=== PATIENT | female | born 1965 | race Caucasian/White ===

== ENCOUNTER 2023-01-27 07:13 | Outpatient (CLI) | payer BC, SELFPAY ==
[2023-01-27 08:00] LABS: Free T4 Free Thyroxine 1.34 ng/dL (0.82-1.77); Thyroid Stimulating Hormone 1.12 uIU/mL (0.27-4.20)
[2023-01-27 08:42] LABS: 25 Hydroxy Vitamin D 55 ng/mL (30-100)
== END 2023-01-27 07:14 | disposition home or self-care (01) ==
PROVIDERS: PCP Internal Medicine; Visit Provider Internal Medicine
DX: E03.9 Hypothyroidism, unspecified (principal); E04.2 Nontoxic multinodular goiter; E55.9 Vitamin D deficiency, unspecified
CPT/HCPCS: 36415; 82306; 84439; 84443

== ENCOUNTER 2023-01-28 15:36 | Outpatient (CLI) | payer BC, SELFPAY ==
--- NOTE | 2023-01-28 16:45 | US_ITS ---
WS: [id number] ULTRASOUND THYROID TECHNIQUE: Ultrasound of the thyroid. CLINICAL INFORMATION: Thyroid Dysfunction COMPARISON: None. FINDINGS: Thyroid: Small heterogeneous atrophic thyroid gland. Right thyroid lobe: 2.9 cm x 0.9 cm x 1.3 cm Solid RIGHT mid thyroid nodule measuring 1.1 x 0.7 x 0.7 cm Left thyroid lobe: 2.3 cm x 0.8 cm x 1.0 cm. Solid LEFT mid thyroid nodule measuring 0.5 x 0.6 x 0.8 cm Isthmus: 0.1 mm. Cervical lymphadenopathy: None. IMPRESSION: 1. Small heterogeneous atrophic thyroid gland. 2. Solid RIGHT mid thyroid nodule measuring 1.1 x 0.7 x 0.7 cm 3. Solid LEFT mid thyroid nodule measuring 0.5 x 0.6 x 0.8 cm
== END 2023-01-28 15:37 | disposition home or self-care (01) ==
PROVIDERS: PCP Internal Medicine; Visit Provider Internal Medicine
DX: E03.9 Hypothyroidism, unspecified (principal); E07.9 Disorder of thyroid, unspecified; E03.4 Atrophy of thyroid (acquired); E04.2 Nontoxic multinodular goiter
CPT/HCPCS: 76536

== ENCOUNTER 2023-03-03 07:37 | Outpatient (CLI) | payer BC, SELFPAY ==
--- NOTE | 2023-03-03 08:06 | MM_ITS ---
WS: [id number] BILATERAL SCREENING DIGITAL TOMOSYNTHESIS MAMMOGRAM WITH CAD HISTORY: SCREENING COMPARISON: 10/02/2021, 09/29/2020 Bilateral CC and MLO views with tomosynthesis and synthetic mammography submitted. Computer aided det ection analyzed. Breast composition: There are scattered areas of fibroglandular density. No suspicious masses, microc alcifications or architectural distortion. IMPRESSION: MM/[place] [id number] BI-RADS: 1-Negative FOLLOW UP: 1 Year Follow-up
== END 2023-03-03 07:38 | disposition home or self-care (01) ==
LOC: RAD 07:37
PROVIDERS: PCP Internal Medicine; Visit Provider Nurse Practitioner Family
DX: Z12.31 Encounter for screening mammogram for malignant neoplasm of breast (principal)
CPT/HCPCS: 77063; 77067

== ENCOUNTER 2023-07-20 06:57 | Outpatient (CLI) | payer BC, SELFPAY ==
[2023-07-20 07:51] LABS: Free T4 Free Thyroxine 1.67 ng/dL (0.82-1.77); Thyroid Stimulating Hormone 1.24 uIU/mL (0.27-4.20)
[2023-07-20 09:22] LABS: 25 Hydroxy Vitamin D 31 ng/mL (30-100)
== END 2023-07-20 06:58 | disposition home or self-care (01) ==
LOC: LAB 07:02
PROVIDERS: PCP Internal Medicine; Visit Provider Internal Medicine
DX: E07.9 Disorder of thyroid, unspecified (principal); E03.9 Hypothyroidism, unspecified
CPT/HCPCS: 36415; 82306; 84439; 84443

== ENCOUNTER 2023-08-25 17:19 | Outpatient (CLI) | payer BC, SELFPAY ==
--- NOTE | 2023-08-25 17:28 | XRR_ITS ---
PROCEDURE INFORMATION: Exam: XR Chest Exam date and time: 08/25/2023 5:31 PM Age: 57 years old Clinical indication: Shortness of breath; Patient HX: SOB x 3 months; Additional info: Chest pain TECHNIQUE: Imaging protocol: Radiologic exam of the chest. Views: 2 views. COMPARISON: No relevant prior studies available. FINDINGS: Lungs: Unremarkable. No consolidation. Pleural spaces: Unremarkable. No pleural effusion. No pneumothorax. Heart/Mediastinum: Unremarkable. No cardiomegaly. Bones/joints: Unremarkable. XR/XR chest 2V* [id number] IMPRESSION: No acute findings.
== END 2023-08-25 17:20 | disposition home or self-care (01) ==
LOC: RAD 17:22
PROVIDERS: PCP Internal Medicine; Visit Provider Nurse Practitioner Family
DX: R06.02 Shortness of breath (principal); R07.9 Chest pain, unspecified
CPT/HCPCS: 71046

== ENCOUNTER 2023-09-09 09:55 | Outpatient (CLI) | payer BC, SELFPAY ==
--- NOTE | 2023-09-09 | ECG_ITS ---
[facility] Test Date: 2023-09-09 Pat Name: Ilda Jurado Department: Room: Gender: Female Urology Surgeon: : 1965 Requested By: Radha Cotton Order Number: [id number] Smith MD: Chilo Rosario M.D. Interpretive Statements NAME OF STUDY: EXERCISE SESTAMIBI STRESS TEST INDICATION: [CHEST PAIN; SHORTNESS OF BREATH] EXERCISE DATA: The patient was exercised by Fan protocol. Baseline heart rate was 89 beats per minute. Baseline blood pressure was 136/85 millimeters of mercury. Maximal predicted heart rate was 164 beats per minute. Maximum heart rate achieved was 152, which was 92% of the maximum predicted heart rate. Maximum blood pressure was 156/83 millimeters of mercury. Total exercise time was 4 minutes. Maximum METs achieved was 7. The reason for ending the test was completion of protocol. The patient complained of neck pain and shortness of breath during the stress test, which then resolved at the end of the test. ELECTROCARDIOGRAM: BASELINE: Showed sinus rhythm, normal axis, no significant ST-T changes at the baseline noted. Right bundle branch block noted[] EXERCISE: At the peak exercise level, [] No significant ST-T changes suggestive of ischemia noted. [] RECOVERY: During the recovery period, heart rate dropped appropriately. No significant ST-T changes in the recovery suggestive of ischemia noted. [] CONCLUSION: 1. Exercise capacity is fair. 2. Heart rate response was appropriate 3. Blood pressure response was appropriate 4. Symptoms not suggestive of ischemia. 5. Electrocardiogram portion of the stress test was not suggestive of ischemia. 6. Nuclear scan will be documented separately. Electronically Signed On 09-27-2023 9:36:02 CDT by Chilo Rosario M.D. [email or web address]
[2023-09-09 10:10] VITALS: BMI 43.8
--- NOTE | 2023-09-09 10:15 | NMCV_ITS ---
NM yadira perf SPECT r/s* [id number] Ilda Jurado Age: 57 Gender: F : 1965 Exam Date: 09/09/2023 10:46 Ordering Phys: Radha Cotton HADOOP ARCHITECT Technologist: SONY Laureano Exam Location: [facility] Indications: CHEST PAIN, SHORTNESS OF BREATH STRESS TEST Please see separate stress test report in [facility] for full findings IMAGE PROTOCOL Rest/Stress 1 Exercise Day Radiopharmaceutical Dose (mCi) Administration Site Administered by Rest: Tc-99m 10.8 IV SONY Laureano Sestamibi Stress:Tc-99m 32.9 IV SONY Rosenthal Sestamibi Rest: 09-Sep-2023 60 Discovery 630 Stress: 09-Sep-2023 15 Discovery 630 Radiopharmaceutical was injected at 85 % maximum heart rate. Images obtained in supine and prone position. SPECT RESULTS Technical Quality: Excellent Raw Data Analysis: Normal Image Corrections: No attenuation or motion correction applied Summed Stress Score: 1 Summed Rest Score: 4 Summed Difference Score: 0 PERFUSION FINDINGS Small area of mostly fixed perfusion defect seen in apical lateral wall. This is consistent with small area of prior infarct with very minimal berenice-infarct ischemia in left circumflex artery territory. FUNCTIONAL RESULTS (calculated via Gated SPECT) Stress Image LV EF (%): 62 Stress EDV (mL):109 TID: 0.73 Stress ESV (mL):41 FUNCTIONAL FINDINGS: There is normal left ventricular systolic function. IMPRESSIONS 1. Small area of prior infarct with very small area of berenice-infarct ischemia seen in left circumflex artery territory. 2. LV systolic function is normal Chilo Rosario MD (Electronically Signed) Final Date: 11 Sep 2023 11:59 S
[2023-09-09 12:16] VITALS: BP 116/74; PULSE 102
== END 2023-09-09 09:56 | disposition home or self-care (01) ==
PROVIDERS: PCP Nurse Practitioner Family; Visit Provider Nurse Practitioner Family
DX: R07.9 Chest pain, unspecified (principal); R06.02 Shortness of breath
CPT/HCPCS: 36415; 78452; 93017; A9500

== ENCOUNTER 2023-09-20 08:42 | Outpatient (CLI) | payer BC, SELFPAY | END 2023-09-20 08:43 | disposition home or self-care (01) | LOC: RT 08:43 | PROVIDERS: PCP Nurse Practitioner Family; Visit Provider Nurse Practitioner Family | DX: R07.9 Chest pain, unspecified (principal); R06.02 Shortness of breath | CPT/HCPCS: 94010; 94726; 94729 ==

== ENCOUNTER 2024-01-13 12:04 | Outpatient (CLI) | payer BC, SELFPAY ==
--- NOTE | 2024-01-13 12:15 | US_ITS ---
WS: [id number] THYROID ULTRASOUND HISTORY: multiple thyroid nodules COMPARISON: 01/28/2023 Right lobe: 1.1 cm x 1.3 cm x 3.2 cm (w x ap x l). Volume: 2.1 cm3. Small atrophic nodular gland. Gland is very poorly defined. There is a solid-appearing nodule in the superior gland measuring 0.9 x 0.5 x 1.3 cm which is not increasing in size. Left lobe: 1.2 cm x 1.0 cm x 2.9 cm (w x ap x l). Volume: 1.7 cm3. Small atrophic gland. Gland is heterogeneous. Hypoechoic nodule measures 0.8 x 0.4 x 0.9 cm in the long perior gland. Isthmus: 0.3 cm. US/US thyroid [id number] IMPRESSION: 1. Atrophic thyroid gland. 2. TI-RADS 3: Bilateral thyroid nodules. Nodules are less than 1.5 cm and stab le. As per TI-RADS criteria follow-up ultrasound in 2 years.
== END 2024-01-13 12:05 | disposition home or self-care (01) ==
LOC: RAD 12:05
PROVIDERS: PCP Nurse Practitioner Family; Visit Provider Internal Medicine
DX: E04.2 Nontoxic multinodular goiter (principal); E03.9 Hypothyroidism, unspecified; E03.4 Atrophy of thyroid (acquired)
CPT/HCPCS: 76536

== ENCOUNTER 2024-01-18 06:58 | Outpatient (CLI) | payer BC, SELFPAY ==
[2024-01-18 07:48] LABS: Free T4 Free Thyroxine 1.38 ng/dL (0.82-1.77); Thyroid Stimulating Hormone 3.17 uIU/mL (0.27-4.20)
[2024-01-18 10:21] LABS: 25 Hydroxy Vitamin D 37 ng/mL (30-100)
== END 2024-01-18 06:59 | disposition home or self-care (01) ==
LOC: LAB 07:01
PROVIDERS: PCP Nurse Practitioner Family; Visit Provider Internal Medicine
DX: E03.9 Hypothyroidism, unspecified (principal); E04.2 Nontoxic multinodular goiter; E55.9 Vitamin D deficiency, unspecified
CPT/HCPCS: 36415; 82306; 84439; 84443

== ENCOUNTER 2024-03-19 07:30 | Outpatient (CLI) | payer BC, SELFPAY ==
--- NOTE | 2024-03-19 07:33 | MM_ITS ---
WS: [id number] BILATERAL SCREENING DIGITAL TOMOSYNTHESIS MAMMOGRAM WITH CAD HISTORY: SCREENING COMPARISON: 03/03/2023, 10/02/2021 and 09/29/2020 Bilateral CC and MLO views with tomosynthesis and synthetic mammography submitted. Computer aided det ection analyzed. Breast composition: There are scattered areas of fibroglandular density. No suspicious masses, microc alcifications or architectural distortion. MM/MM scr BI tomosynthesis [id number] IMPRESSION: BI-RADS: 2 - Benign. FOLLOW UP: 1 Year Follow-up
== END 2024-03-19 07:31 | disposition home or self-care (01) ==
LOC: RAD 07:31
PROVIDERS: PCP Nurse Practitioner Family; Visit Provider Nurse Practitioner Family
DX: Z12.31 Encounter for screening mammogram for malignant neoplasm of breast (principal)
CPT/HCPCS: 77063; 77067

== ENCOUNTER 2024-03-30 06:41 | Outpatient (CLI) | payer BC, SELFPAY ==
[2024-03-30 07:35] LABS: Free T4 Free Thyroxine 1.44 ng/dL (0.82-1.77); Thyroid Stimulating Hormone 0.37 uIU/mL (0.27-4.20)
== END 2024-03-30 06:42 | disposition home or self-care (01) ==
PROVIDERS: PCP Nurse Practitioner Family; Visit Provider Internal Medicine
DX: E03.9 Hypothyroidism, unspecified (principal); E04.2 Nontoxic multinodular goiter
CPT/HCPCS: 36415; 84439; 84443

== ENCOUNTER 2024-09-18 07:05 | Outpatient (CLI) | payer OTHER, SELFPAY ==
[2024-09-18 08:40] LABS: 25 Hydroxy Vitamin D 45 ng/mL (30-100); Thyroid Stimulating Hormone 0.43 uIU/mL (0.27-4.20)
[2024-09-18 09:06] LABS: Free T4 Free Thyroxine 1.63 ng/dL (0.82-1.77)
== END 2024-09-18 07:06 | disposition home or self-care (01) ==
PROVIDERS: PCP Nurse Practitioner Family; Visit Provider Internal Medicine
DX: E55.9 Vitamin D deficiency, unspecified (principal); E03.9 Hypothyroidism, unspecified
CPT/HCPCS: 36415; 82306; 84439; 84443

== ENCOUNTER → 2024-12-02 13:07 | Outpatient (BNVA) | payer OTHER, SELFPAY | PROVIDERS: PCP Nurse Practitioner Family; Visit Provider Nurse Practitioner | DX: R39.9 Unspecified symptoms and signs involving the genitourinary system (principal) | CPT/HCPCS: 81000; 87086 ==

== ENCOUNTER 2024-12-28 11:43 | Outpatient (CLI) | payer OTHER, SELFPAY ==
--- NOTE | 2024-12-28 11:50 | CT_ITS ---
WS: [id number] CT ABDOMEN AND PELVIS WITH CONTRAST HISTORY: R FLANK PAIN/ABD PAIN TECHNIQUE: Imaging performed of the abdomen and pelvis with IV contrast. Single phase imaging of the abdomen. Coronal and sagittal reformats are submitted. All CT scans at [facility] use at least one of these dose optimization techniques: automated exposure control; mA and/or kV adjustment per patient size (includes targeted exams where dose is matched to clinical indication); or iterative reconstruction. IV CONTRAST: Omnipaque 350; 100 mL IV. Oral contrast: No DLP: 1104.13 mGy.cm COMPARISON: None available. Lower thorax: Lung bases are clear. Heart is normal size. Small hiatal hernia. Liver/biliary system: Normal size liver with hepatic steatosis. Normal portal vein. No intrahepatic duct dilatation. Gallbladder: Normal. No gallstones or wall thickening. No pericholecystic fluid. Pancreas: Normal size pancreas and pancreatic duct. No adjacent inflammation. Spleen: Normal size spleen. No mass or infarct. Adrenal glands: Normal. Right kidney: Normal. Left kidney: Normal. Aorta: Celiac axis variant. No stenosis. Normal SMA. Lymphadenopathy: None. Free fluid: None. GI tract: Nondistended stomach. No small bowel obstruction. No appendicitis. Mild constipation. No colitis or wall thickening or obstruction. No significant diverticular disease. Abdominal wall: Fat containing umbilical hernia. Pelvis: No free fluid or adenopathy within the pelvis. Bones: Grade 1 anterolisthesis of L5. Bilateral pars defects of L5. Schmorl's node superior endplate of T10. CT/CT abdomen pelvis w con* [id number] IMPRESSION: 1. No acute abdominal or pelvic abnormalities. 2. Mild hepatic steatosis. 3. No colitis or appendicitis. 4. No renal obstruction. 5. Small fat-containing umbilical hernia. 6. No ascites or adenopathy. 7. Grade 1 spondylolysis L5.
[2024-12-28] MEDS: iohexol 350 mg/mL 500 mL Btl (per mL) IV (11:57)
== END 2024-12-28 11:44 | disposition home or self-care (01) ==
LOC: RAD 11:44
PROVIDERS: PCP Nurse Practitioner Family; Visit Provider Nurse Practitioner Family
DX: R10.9 Unspecified abdominal pain (principal); K42.9 Umbilical hernia without obstruction or gangrene; K76.0 Fatty (change of) liver, not elsewhere classified; M47.816 Spondylosis without myelopathy or radiculopathy, lumbar region
CPT/HCPCS: 74177

== ENCOUNTER 2025-03-26 07:13 | Outpatient (CLI) | payer OTHER, SELFPAY ==
[2025-03-26 08:39] LABS: Thyroid Stimulating Hormone 0.67 uIU/mL (0.27-4.20)
[2025-03-26 09:42] LABS: Free T4 Free Thyroxine 1.42 ng/dL (0.82-1.77)
== END 2025-03-26 07:14 | disposition home or self-care (01) ==
PROVIDERS: PCP Nurse Practitioner Family; Visit Provider Internal Medicine
DX: E04.2 Nontoxic multinodular goiter (principal); E55.9 Vitamin D deficiency, unspecified; E03.9 Hypothyroidism, unspecified
CPT/HCPCS: 36415; 82306; 84439; 84443

== ENCOUNTER 2025-04-01 14:45 | Outpatient (CLI) | payer OTHER, SELFPAY ==
--- NOTE | 2025-04-01 14:49 | MM_ITS ---
WS: [id number] BILATERAL 3D TOMOSYNTHESIS DIGITAL SCREENING MAMMOGRAPHY WITH CAD CLINICAL INFORMATION: SCREENING HISTORY: Screening mammogram. No current complaints. COMPARISON: 2023 TECHNIQUE: Bilateral CC and MLO views. FINDINGS: Scattered fibroglandular densities bilaterally. No suspicious focal mass, asymmetry, calcifications, or architectural distortion. No evidence of malignancy. MM/MM scr BI tomosynthesis [id number] IMPRESSION: DENSITY: There are scattered areas of fibroglandular density. BI-RADS: 1 - Negative. FOLLOW UP: 1 Year Follow-up Recommend return to annual screening mammography.
== END 2025-04-01 14:46 | disposition home or self-care (01) ==
LOC: RAD 14:46
PROVIDERS: PCP Nurse Practitioner Family; Visit Provider Nurse Practitioner Family
DX: Z12.31 Encounter for screening mammogram for malignant neoplasm of breast (principal); R92.323 Mammographic fibroglandular density, bilateral breasts
CPT/HCPCS: 77063; 77067